=== PATIENT | male | born 1970 | race African-American/Black ===

== ENCOUNTER 2022-01-05 20:36 | Emergency (ER) | payer OTHER ==
[2022-01-05 20:52] VITALS: BMI 23.1
[2022-01-05 20:54] VITALS: BP 109/74; PULSE 71; TEMP 99
[2022-01-05 21:42] LABS: HEMATOCRIT 41.3 % (35.4-49); HEMOGLOBIN 14.5 G/dL (11.7-16.9); MCH 30.4 pg (25.7-33.7); MCHC 35.1 g/dl (32.0-35.9); MEAN CELL VOLUME 86.5 fl (80-96); MEAN PLT VOLUME 8.1 fl (7.5-11.1); PLATELET COUNT 304.6 10^3/uL (134-434); RBC 4.77 10^6/uL (4.00-5.60); RDW 14.7 % (11.9-15.9); WHITE BLOOD COUNT 6.3 10^3/uL (4.0-10.8)
[2022-01-05 22:17] LABS: ALBUMIN 3.9 g/dl (3.4-5.0); BILIRUBIN,TOTAL 0.8 mg/dl (0.2-1); CALCIUM 9.4 mg/dl (8.5-10); CREATININE 1.1 mg/dl (0.55-1.3); MAGNESIUM 1.7 mg/dL (1.8-2.4); TOT PROT 7.4 g/dl (6.4-8.2)
[2022-01-05 23:14] LABS: PLATELET ESTIMATE ADEQUATE
== END 2022-01-05 23:47 | disposition home or self-care (01) ==
LOC: FER 20:36
DX: R53.83 Other fatigue (principal)
CPT/HCPCS: 36415; 70450-TC; 80053; 81003; 83735; 84443; 85025; 93005; 99285-25